=== PATIENT | female | born 1965 | race African-American/Black ===

== ENCOUNTER 2016-05-20 12:24 | Inpatient (IN) | payer MEDICAID, OTHER ==
[~2016-05-20] VITALS: Ht 157.5 cm; Wt 107.4 kg
[2016-05-20 13:24] LABS: Basophils # (auto) 0 uL; Basophils % (auto) 0.4 % (0.0-2.0); Eosinophils # (auto) 0.4 uL; Eosinophils % (auto) 7.6 % (0.0-7.0); Hematocrit 37.7 % (36.0-46.0); Hemoglobin 12.2 g/dL (12.2-16.2); Lymphocytes # (auto) 2.3 uL; Lymphocytes % (auto) 41.5 % (10.0-50.0); Mean Corpuscular Hemoglobin 29.7 pg (28.0-32.0); Mean Corpuscular Hgb Conc. 32.4 g/dL (32.0-36.0); Mean Corpuscular Volume 91.7 fL (80.0-100.0); Mean Platelet Volume 8.5 fL (7.4-10.4); Monocytes # (auto) 0.3 uL; Monocytes % (auto) 4.6 % (0.0-12.0); Neutrophils # (auto) 2.6 uL; Neutrophils % (auto) 45.9 % (37.0-80.0); Platelet Count (auto) 356 10^3/uL (140-450); Red Cell Distribution Width 16.2 % (11.6-16.0); White Blood Cell 5.6 10^3/uL (4.4-10.8)
[2016-05-20 21:05] LABS: INR 1.04 (0.9-1.15); Partial Thromboplastin Time 24.9 sec (22.64-33.71); Prothrombin Time 10.7 sec (9.37-12.3)
[2016-05-20 21:14] LABS: Albumin 3.1 g/dL (3.4-5.0); BUN/Creatinine Ratio 16.7; Bilirubin, Total 0.2 mg/dL (0.2-1.0); Calcium 8.9 mg/dL (8.5-10.1); Potassium 3.1 mmol/L (3.5-5.1); Total Protein 6.8 g/dL (6.4-8.2)
[2016-05-20] MEDS ORDERED: POTASSIUM CHL 20 Meq TABLET PO ONE (22:45)
[2016-05-20] MEDS ORDERED: HYDROcodone-ACET 5/325MG TAB PO PRN (23:00)
[2016-05-20 23:12] LABS: Urine Bilirubin Negative (Negative); Urine Blood Negative /uL (Negative); Urine Color Yellow (Yellow); Urine Glucose Normal (Normal); Urine Hyaline Cast FEW /lpf (0 - 2); Urine Ketone Negative (Negative); Urine Mucus FEW (None Seen); Urine Nitrite Negative (Negative); Urine RBC 1 /hpf (0 - 4); Urine Squamous Epithelial Cell MOD /hpf (<5); Urine Urobilinogen Normal (Negative)
[2016-05-20] MEDS: SODIUM CHLORIDE 0.9% 1,000 ML IV SCH (23:12)
[2016-05-20 23:37] LABS: Temperature: 23.5 C (20.0-25.0)
[2016-05-20 23:58] VITALS: BP 127/80
[2016-05-21 00:18] VITALS: BP 127/80
[2016-05-21] MEDS ORDERED: ASPI-231 PO (00:24)
[2016-05-21] MEDS ORDERED: HYDR25TA4 PO (00:25)
[2016-05-21] MEDS ORDERED: MET50T PO (00:25)
[2016-05-21] MEDS ORDERED: GABA300C8 PO (00:26)
[2016-05-21 05:30] VITALS: BP 141/60
[2016-05-21] MEDS: GABAPENTIN 100 MG CAP PO SCH ×2 (05:52→13:51)
[2016-05-21] MEDS: METHOCARBAMOL 500 MG TAB PO SCH ×2 (05:52→13:51)
[2016-05-21 06:51] LABS: Basophils # (auto) 0 uL; Basophils % (auto) 0.9 % (0.0-2.0); Eosinophils # (auto) 0.4 uL; Eosinophils % (auto) 7.3 % (0.0-7.0); Hematocrit 34.7 % (36.0-46.0); Lymphocytes # (auto) 2.5 uL; Lymphocytes % (auto) 46.7 % (10.0-50.0); Mean Corpuscular Hemoglobin 29.4 pg (28.0-32.0); Mean Corpuscular Hgb Conc. 31.7 g/dL (32.0-36.0); Mean Corpuscular Volume 92.8 fL (80.0-100.0); Mean Platelet Volume 8.4 fL (7.4-10.4); Monocytes # (auto) 0.4 uL; Monocytes % (auto) 7.1 % (0.0-12.0); Platelet Count (auto) 298 10^3/uL (140-450); Red Cell Distribution Width 15.8 % (11.6-16.0); White Blood Cell 5.4 10^3/uL (4.4-10.8)
[2016-05-21 07:20] LABS: Albumin 2.9 g/dL (3.4-5.0); BUN/Creatinine Ratio 15.6; Bilirubin, Total 0.2 mg/dL (0.2-1.0); Calcium 8.6 mg/dL (8.5-10.1); Potassium 3.4 mmol/L (3.5-5.1); Total Protein 6.3 g/dL (6.4-8.2)
[2016-05-21 09:38] VITALS: BP 126/76
[2016-05-21] MEDS ORDERED: ASPirin 81 mg TAB PO SCH (10:00)
[2016-05-21] MEDS ORDERED: LOSARTAN POTASSIUM 50 MG TAB PO SCH (10:00)
[2016-05-21] MEDS ORDERED: METOPROLOL TARTRATE 50 MG TAB PO SCH (10:00)
[2016-05-21] MEDS ORDERED: ENOXAPARIN SOD 40 MG/0.4 ML SYRINGE SC SCH (10:00)
[2016-05-21] MEDS ORDERED: HCTZ 25 MG TAB PO SCH (10:00)
[2016-05-21] MEDS ORDERED: NIFEdipine ER 30 MG TAB PO SCH (10:00)
[2016-05-21] MEDS ORDERED: PANTOPRAZOLE SODIUM 40 MG/10 ML VIAL IV SCH (10:00)
[2016-05-21] MEDS: SODIUM CHLORIDE 0.9% 1,000 ML IV SCH (12:17)
[2016-05-21 13:00] VITALS: BP 110/75
[2016-05-21 17:07] VITALS: BP 112/77
[2016-05-21 18:22] VITALS: BP 112/77
== END 2016-05-21 19:47 | disposition home or self-care (01) | DRG 47 ==
LOC: ER 12:39 → CENTRAL 12:40
PROVIDERS: ADMIT Family Medicine; ATTEND Internal Medicine
DX: G45.9 Transient cerebral ischemic attack, unspecified (principal); G93.89 Other specified disorders of brain; E87.6 Hypokalemia; E78.5 Hyperlipidemia, unspecified; I10 Essential (primary) hypertension; F41.9 Anxiety disorder, unspecified; E66.9 Obesity, unspecified; Z68.41 Body mass index [BMI] 40.0-44.9, adult; I69.354 Hemiplegia and hemiparesis following cerebral infarction affecting left non-dominant side; Z82.49 Family history of ischemic heart disease and other diseases of the circulatory system
CPT/HCPCS: 36415; 70450; 71010; 80053; 80061; 81001; 81025; 82607; 82746; 82962; 83735; 84443; 84484; 85025; 85610; 85730; 93005; 93306; 93886; 94761; C9113

== ENCOUNTER 2017-04-05 10:30 | Emergency (ER) | payer OTHER ==
[~2017-04-05] VITALS: Ht 157.5 cm; Wt 95.3 kg
[~2017-04-05 10:30] MED LIST: ASPI-231 PO; GABA-497 PO; HYDR25TA4 PO; MET50T PO
[2017-04-05 11:25] VITALS: BP 125/80
== END 2017-04-05 11:54 | disposition home or self-care (01) ==
LOC: ER 10:30
DX: J01.10 Acute frontal sinusitis, unspecified (principal); E78.5 Hyperlipidemia, unspecified; I10 Essential (primary) hypertension; Z86.73 Personal history of transient ischemic attack (TIA), and cerebral infarction without residual deficits
CPT/HCPCS: 70450

== ENCOUNTER 2021-01-23 09:44 | Emergency (ER) | payer MEDICAID, OTHER ==
[~2021-01-23] VITALS: Ht 160 cm; Wt 113.4 kg
[~2021-01-23 09:44] MED LIST changes: -GABA-497 PO; +GABA300C10 PO
[2021-01-23 10:32] LABS: INR 1.03 (0.9-1.15); Partial Thromboplastin Time 24.6 sec (23.6-33.0)
[2021-01-23 10:39] LABS: Basophils # (auto) 0.1 10 ^3/uL (0-0.2); Basophils % (auto) 1.2 % (0.0-2.0); Eosinophils # (auto) 0.1 10 ^3/uL (0-0.8); Eosinophils % (auto) 2.2 % (0.0-7.0); Hematocrit 42.3 % (36.0-46.0); Hemoglobin 13.7 g/dL (12.2-16.2); Lymphocytes # (auto) 2.5 10 ^3/uL (0.4-5.4); Mean Corpuscular Hemoglobin 31.3 pg (28.0-32.0); Mean Corpuscular Hgb Conc. 32.3 g/dL (32.0-36.0); Mean Corpuscular Volume 96.8 fL (80.0-100.0); Monocytes # (auto) 0.4 10 ^3/uL (0-1.3); Monocytes % (auto) 6.9 % (0.0-12.0); Neutrophils # (auto) 2.7 10 ^3/uL (1.6-8.6); Neutrophils % (auto) 46.7 % (37.0-80.0); Nucleated Red Blood Cells % 0.1 %; Red Blood Cells 4.37 10^6/uL (4.0-5.20); Red Cell Distribution Width 15.5 % (11.8-14.3); White Blood Cell 5.8 10^3/uL (4.4-10.8)
[2021-01-23 10:56] LABS: Albumin 3.2 g/dL (3.4-5.0); Calcium 9.5 mg/dL (8.5-10.1); Potassium 3.5 mmol/L (3.5-5.1)
[2021-01-23 11:00] LABS: BUN/Creatinine Ratio 20.5; Bilirubin, Total 0.3 mg/dL (0.2-1.0); Total Protein 7.5 g/dL (6.4-8.2)
[2021-01-23 18:35] VITALS: BP 144/89
== END 2021-01-23 18:40 | disposition home or self-care (01) ==
LOC: ER 09:44
DX: R04.0 Epistaxis (principal); I10 Essential (primary) hypertension; E78.5 Hyperlipidemia, unspecified; Z86.73 Personal history of transient ischemic attack (TIA), and cerebral infarction without residual deficits; Z79.82 Long term (current) use of aspirin; Z79.899 Other long term (current) drug therapy
CPT/HCPCS: 30901; 36415; 80053; 85025; 85610; 85730

== ENCOUNTER 2021-08-17 10:46 | Emergency (ER) | payer SELFPAY ==
[~2021-08-17] VITALS: Ht 160 cm; Wt 95.3 kg
[~2021-08-17 10:46] MED LIST changes: -ASPI-231 PO; +ASPI1TAB20 PO
[2021-08-17 11:21] VITALS: BP 156/78
[2021-08-17] MEDS ORDERED: IBUP800T27 PO (12:07)
== END 2021-08-17 12:22 | disposition home or self-care (01) ==
LOC: ER 10:46
DX: S83.92XA Sprain of unspecified site of left knee, initial encounter (principal); I10 Essential (primary) hypertension; E78.5 Hyperlipidemia, unspecified; X58.XXXA Exposure to other specified factors, initial encounter; Y93.89 Activity, other specified; Y92.89 Other specified places as the place of occurrence of the external cause; Y99.8 Other external cause status
CPT/HCPCS: 29505; 73562

== ENCOUNTER 2021-09-26 13:37 | Inpatient (IN) | payer SELFPAY ==
[~2021-09-26] VITALS: Ht 160 cm; Wt 119.8 kg
[~2021-09-26 13:37] MED LIST changes: +IBUP800T27 PO
[2021-09-26 15:02] LABS: Basophils # (auto) 0.1 10 ^3/uL (0-0.2); Basophils % (auto) 1.1 % (0.0-2.0); Eosinophils # (auto) 0.2 10 ^3/uL (0-0.8); Eosinophils % (auto) 1.9 % (0.0-7.0); Hematocrit 39.2 % (36.0-46.0); Hemoglobin 13.3 g/dL (12.2-16.2); Lymphocytes # (auto) 2.6 10 ^3/uL (0.4-5.4); Mean Corpuscular Hemoglobin 31.5 pg (28.0-32.0); Mean Corpuscular Volume 92.8 fL (80.0-100.0); Monocytes # (auto) 0.8 10 ^3/uL (0-1.3); Monocytes % (auto) 8.7 % (0.0-12.0); Neutrophils # (auto) 5.4 10 ^3/uL (1.6-8.6); Neutrophils % (auto) 59.3 % (37.0-80.0); Nucleated Red Blood Cells % 0.1 %; Red Blood Cells 4.23 10^6/uL (4.0-5.20); Red Cell Distribution Width 15.3 % (11.8-14.3); White Blood Cell 9.1 10^3/uL (4.4-10.8)
[2021-09-26 15:18] LABS: Potassium 3.1 mmol/L (3.5-5.1)
[2021-09-26 15:26] LABS: Albumin 2.7 g/dL (3.4-5.0); Amylase 22 U/L (25-115); BUN/Creatinine Ratio 17.3; Bilirubin, Total 0.4 mg/dL (0.2-1.0); Calcium 9.7 mg/dL (8.5-10.1); Lipase 137 U/L (73-393); Total Protein 7.8 g/dL (6.4-8.2)
[2021-09-26] MEDS ORDERED: SODIUM CHLORIDE 0.9% 500 ML IVB ONE (16:15)
[2021-09-26] MEDS ORDERED: ONDANSETRON HCL 4 MG/2 ML VIAL IV ONE (16:15)
[2021-09-26] MEDS ORDERED: PANTOPRAZOLE 40 MG/10 ML VIAL INJ IV ONE (16:15)
[2021-09-26] MEDS ORDERED: MORPHINE SULFATE 4 MG/ML SYR/VIAL IV ONE (16:15)
[2021-09-26] MEDS ORDERED: POTASSIUM CHL 20MEQ/100ML 100 ML IV ONE (17:00)
[2021-09-27] VITALS (7 sets, daily range): BP systolic 106–134; BP diastolic 59–87
[2021-09-27] MEDS ORDERED: NITROGLYCERIN 0.4 MG SL TAB SL PRN
[2021-09-27] MEDS ORDERED: ACETAMINOPHEN 325 MG TAB PO PRN
[2021-09-27] MEDS ORDERED: DOCUSATE SOD 100 MG CAP PO PRN
[2021-09-27] MEDS ORDERED: MORPHINE SULFATE INJ 2 MG/ml SYRG IV PRN
[2021-09-27] MEDS: SODIUM CHLORIDE 0.9% 1,000 ML IV SCH ×4 (00:07→19:40)
[2021-09-27] MEDS: POTASSIUM CHL 20MEQ/100ML 100 ML IV SCH ×2 (02:46→04:56)
[2021-09-27 03:46] LABS: Urine Bacteria MOD /hpf (None Seen); Urine Blood TRACE /uL (Negative); Urine Hyaline Cast MOD /lpf (0 - 2); Urine Mucus FEW (None Seen); Urine Specific Gravity 1.027 (1.001-1.035); Urine WBC 70 /hpf (0 - 5)
[2021-09-27] MEDS: ONDANSETRON HCL 4 MG/2 ML VIAL IV PRN (04:22)
[2021-09-27] MEDS: MORPHINE SULFATE INJ 2 MG/ml SYRG IV PRN ×2 (04:22→20:18)
[2021-09-27] MEDS ORDERED: BENA10TA15 PO (06:06)
[2021-09-27 07:35] LABS: Basophils # (auto) 0.1 10 ^3/uL (0-0.2); Basophils % (auto) 0.8 % (0.0-2.0); Eosinophils # (auto) 0.2 10 ^3/uL (0-0.8); Eosinophils % (auto) 2.4 % (0.0-7.0); Hematocrit 35.6 % (36.0-46.0); Mean Corpuscular Hemoglobin 31.8 pg (28.0-32.0); Mean Corpuscular Hgb Conc. 33.8 g/dL (32.0-36.0); Monocytes # (auto) 0.8 10 ^3/uL (0-1.3); Monocytes % (auto) 9.6 % (0.0-12.0); Neutrophils # (auto) 4.8 10 ^3/uL (1.6-8.6); Neutrophils % (auto) 61.2 % (37.0-80.0); Nucleated Red Blood Cells % 0.1 %; Red Blood Cells 3.78 10^6/uL (4.0-5.20); Red Cell Distribution Width 15.2 % (11.8-14.3); White Blood Cell 7.8 10^3/uL (4.4-10.8)
[2021-09-27 07:55] LABS: Albumin 2.4 g/dL (3.4-5.0); Potassium 3.6 mmol/L (3.5-5.1)
[2021-09-27 08:01] LABS: Bilirubin, Total 0.3 mg/dL (0.2-1.0); Total Protein 6.9 g/dL (6.4-8.2)
[2021-09-27] MEDS: METOPROLOL TARTRATE 25 MG TAB PO SCH ×2 (10:00→21:39)
[2021-09-27] MEDS: PANTOPRAZOLE 40 MG/10 ML VIAL INJ IV SCH (10:47)
[2021-09-27] MEDS ORDERED: cefTRIAXone 1GM/50ML D5W 50 ML IV ONE (13:00)
[2021-09-27] MEDS: metroNIDAZOLE 500MG/100ML 100 ML IV SCH ×2 (15:16→21:39)
[2021-09-27 19:56] LABS: INR 1.16 (0.9-1.15); Partial Thromboplastin Time 29.1 sec (23.6-33.0)
[2021-09-28] MEDS: SODIUM CHLORIDE 0.9% 1,000 ML IV SCH ×4 (02:20→22:43)
[2021-09-28 05:00] VITALS: BP 122/80
[2021-09-28] MEDS: metroNIDAZOLE 500MG/100ML 100 ML IV SCH ×3 (05:18→22:07)
[2021-09-28 08:00] VITALS: BP 123/84
[2021-09-28 09:00] VITALS: BP 123/84
[2021-09-28] MEDS: PANTOPRAZOLE 40 MG/10 ML VIAL INJ IV SCH (09:58)
[2021-09-28] MEDS: cefTRIAXone 1GM/50ML D5W 50 ML IV SCH (09:58)
[2021-09-28] MEDS: METOPROLOL TARTRATE 25 MG TAB PO SCH ×2 (10:00→22:08)
[2021-09-28] MEDS: ONDANSETRON HCL 4 MG/2 ML VIAL IV PRN (10:40)
[2021-09-28] MEDS: MORPHINE SULFATE INJ 2 MG/ml SYRG IV PRN ×2 (12:48→20:54)
[2021-09-28 13:00] VITALS: BP 147/78
[2021-09-28] MEDS: hydrALAZINE HCL 25 MG TAB PO PRN (16:48)
[2021-09-28 17:01] VITALS: BP 153/99
[2021-09-28 22:00] VITALS: BP 137/89
[2021-09-29] MEDS: HYDROcodone-ACET 5/325MG TAB PO PRN ×2 (03:55→21:52)
[2021-09-29 05:00] VITALS: BP 134/88
[2021-09-29] MEDS: SODIUM CHLORIDE 0.9% 1,000 ML IV SCH ×3 (05:28→18:20)
[2021-09-29] MEDS: metroNIDAZOLE 500MG/100ML 100 ML IV SCH ×3 (05:28→21:43)
[2021-09-29 08:30] VITALS: BP 181/127
[2021-09-29] MEDS: PANTOPRAZOLE 40 MG/10 ML VIAL INJ IV SCH (10:05)
[2021-09-29] MEDS: cefTRIAXone 1GM/50ML D5W 50 ML IV SCH (10:05)
[2021-09-29] MEDS: METOPROLOL TARTRATE 25 MG TAB PO SCH ×2 (10:06→21:44)
[2021-09-29 12:30] VITALS: BP 172/108
[2021-09-29] MEDS: hydrALAZINE HCL 25 MG TAB PO PRN ×2 (12:45→22:53)
[2021-09-29 16:30] VITALS: BP 189/119
[2021-09-30] MEDS: SODIUM CHLORIDE 0.9% 1,000 ML IV SCH (01:00)
[2021-09-30] MEDS: HYDROcodone-ACET 5/325MG TAB PO PRN ×2 (03:25→08:31)
[2021-09-30] MEDS: MORPHINE SULFATE INJ 2 MG/ml SYRG IV PRN ×2 (04:27→13:56)
[2021-09-30] MEDS: hydrALAZINE HCL 25 MG TAB PO PRN ×2 (04:28→08:31)
[2021-09-30 05:00] VITALS: BP 170/107
[2021-09-30] MEDS: metroNIDAZOLE 500MG/100ML 100 ML IV SCH ×3 (05:08→22:49)
[2021-09-30] MEDS: cefTRIAXone 1GM/50ML D5W 50 ML IV SCH (08:30)
[2021-09-30] MEDS: METOPROLOL TARTRATE 25 MG TAB PO SCH ×2 (08:32→22:50)
[2021-09-30 08:58] VITALS: BP 189/110
[2021-09-30] MEDS: PANTOPRAZOLE 40 MG/10 ML VIAL INJ IV SCH (10:00)
[2021-09-30 13:08] VITALS: BP 169/105
[2021-09-30] MEDS: ONDANSETRON HCL 4 MG/2 ML VIAL IV PRN (13:56)
[2021-09-30] MEDS: BENAZEPRIL HCL 10 MG TAB PO SCH (14:26)
[2021-09-30] MEDS: HCTZ 25 MG TAB PO SCH (14:26)
[2021-09-30] MEDS ORDERED: hydrALAZINE HCL 20 MG/ML VL IV ONE (15:30)
[2021-09-30] MEDS ORDERED: SUCCINYLCHOLINE CHLORIDE 20 MG/ML 10ML VIAL IV ONE (16:34)
[2021-09-30] MEDS ORDERED: fentaNYL CITRATE 100 MCG/2 ML VL ONE (16:42)
[2021-09-30] MEDS ORDERED: MIDAZOLAM HCL 2MG/2ML 2ml VIAL (1mg/ml) ONE (16:43)
[2021-09-30] MEDS ORDERED: LABETALOL HCL 5 MG/ML ML 20ML VIAL IV ONE (16:46)
[2021-09-30] MEDS ORDERED: NEOSTIGMINE 1 MG/ML INJ (10mg/10ML VIAL) ONE ×2 (16:46→18:52)
[2021-09-30] MEDS ORDERED: LIDOCAINE 2% (LOCAL ANESTH.) PF 5ml SDV ONE (16:46)
[2021-09-30] MEDS ORDERED: GLYCOPYRROLATE 0.2 MG/ML 1ML VIAL ONE ×2 (16:46→18:52)
[2021-09-30] MEDS ORDERED: ONDANSETRON HCL 4 MG/2 ML VIAL ONE ×2 (16:46→18:52)
[2021-09-30] MEDS ORDERED: METOCLOPRAMIDE HCL 5MG/ml INJ 2ml VIAL ONE ×2 (16:46→18:52)
[2021-09-30] MEDS ORDERED: BUPIVACAINE 0.25% INJ 50ML VIAL ONE (16:53)
[2021-09-30 17:05] VITALS: BP 178/105
[2021-09-30] MEDS ORDERED: DexAMETHasone SOD PHOS 10MG/1ML VIAL INJ ONE (18:52)
[2021-09-30] MEDS ORDERED: PROPOFOL 10 MG/ML 20 ML IV ONE (18:52)
[2021-09-30] MEDS ORDERED: fentaNYL CITRATE 100 MCG/2 ML VL IV PRN (20:45)
[2021-09-30] MEDS ORDERED: METOCLOPRAMIDE HCL 5MG/ml INJ 2ml VIAL IV PRN (20:45)
[2021-09-30] MEDS ORDERED: LABETALOL HCL 5 MG/ML 4ML SYRINGE IV PRN (20:45)
[2021-09-30] MEDS ORDERED: ONDANSETRON HCL 4 MG/2 ML VIAL IV PRN (20:45)
[2021-09-30] MEDS ORDERED: hydrALAZINE HCL 20 MG/ML VL IV PRN (20:45)
[2021-09-30] MEDS: HYDROmorphone HCL 2 MG/ML VL/or syr IV PRN ×2 (20:50→21:06)
[2021-10-01] MEDS: MORPHINE SULFATE INJ 2 MG/ml SYRG IV PRN ×3 (00:18→21:46)
[2021-10-01] MEDS: ONDANSETRON HCL 4 MG/2 ML VIAL IV PRN ×2 (00:23→09:16)
[2021-10-01] MEDS: metroNIDAZOLE 500MG/100ML 100 ML IV SCH ×3 (05:47→19:05)
[2021-10-01 06:32] LABS: Basophils # (auto) 0 10 ^3/uL (0-0.2); Basophils % (auto) 0.4 % (0.0-2.0); Eosinophils # (auto) 0 10 ^3/uL (0-0.8); Hematocrit 37.2 % (36.0-46.0); Hemoglobin 12.9 g/dL (12.2-16.2); Lymphocytes % (auto) 12.4 % (10.0-50.0); Mean Corpuscular Hgb Conc. 34.6 g/dL (32.0-36.0); Mean Corpuscular Volume 92.6 fL (80.0-100.0); Monocytes # (auto) 0.4 10 ^3/uL (0-1.3); Monocytes % (auto) 5.5 % (0.0-12.0); Neutrophils # (auto) 6.4 10 ^3/uL (1.6-8.6); Neutrophils % (auto) 81.7 % (37.0-80.0); Nucleated Red Blood Cells % 0.2 %; Red Blood Cells 4.02 10^6/uL (4.0-5.20); White Blood Cell 7.9 10^3/uL (4.4-10.8)
[2021-10-01 06:41] LABS: Potassium 3.4 mmol/L (3.5-5.1)
[2021-10-01 06:48] LABS: Albumin 2.5 g/dL (3.4-5.0); BUN/Creatinine Ratio 8.1; Bilirubin, Total 0.3 mg/dL (0.2-1.0); Calcium 8.9 mg/dL (8.5-10.1); Total Protein 7.2 g/dL (6.4-8.2)
[2021-10-01 07:12] LABS: Red Cell Distribution Width 15.3 % (11.8-14.3)
[2021-10-01 08:45] VITALS: BP 169/106
[2021-10-01] MEDS: cefTRIAXone 1GM/50ML D5W 50 ML IV SCH (09:15)
[2021-10-01] MEDS: PANTOPRAZOLE 40 MG/10 ML VIAL INJ IV SCH (09:17)
[2021-10-01] MEDS: SODIUM CHLORIDE 0.9% 1,000 ML IV SCH ×2 (10:20→18:53)
[2021-10-01] MEDS: BENAZEPRIL HCL 10 MG TAB PO SCH (10:32)
[2021-10-01] MEDS: METOPROLOL TARTRATE 25 MG TAB PO SCH ×2 (10:32→21:36)
[2021-10-01] MEDS: HCTZ 25 MG TAB PO SCH (10:33)
[2021-10-01 12:45] VITALS: BP 146/88
[2021-10-01 14:53] LABS: Hepatitis B Core IgM Negative
[2021-10-01 14:54] LABS: Hepatitis B Surface Antibody Negative (Negative); Hepatitis C Antibody Negative (Negative)
[2021-10-01 17:00] VITALS: BP 160/103
[2021-10-01 21:57] VITALS: BP 148/105
[2021-10-02] VITALS (8 sets, daily range): BP systolic 125–183; BP diastolic 82–114
[2021-10-02] MEDS: SODIUM CHLORIDE 0.9% 1,000 ML IV SCH (03:38)
[2021-10-02] MEDS: hydrALAZINE HCL 25 MG TAB PO PRN ×3 (04:06→18:59)
[2021-10-02] MEDS: metroNIDAZOLE 500MG/100ML 100 ML IV SCH ×3 (06:01→21:41)
[2021-10-02] MEDS: cefTRIAXone 1GM/50ML D5W 50 ML IV SCH (09:20)
[2021-10-02] MEDS: BENAZEPRIL HCL 10 MG TAB PO SCH (09:21)
[2021-10-02] MEDS: METOPROLOL TARTRATE 25 MG TAB PO SCH ×2 (09:22→21:47)
[2021-10-02] MEDS: HCTZ 25 MG TAB PO SCH (09:22)
[2021-10-02] MEDS: PANTOPRAZOLE 40 MG/10 ML VIAL INJ IV SCH (09:22)
[2021-10-02 17:05] LABS: Basophils # (auto) 0.1 10 ^3/uL (0-0.2); Basophils % (auto) 1.3 % (0.0-2.0); Eosinophils # (auto) 0.1 10 ^3/uL (0-0.8); Eosinophils % (auto) 1.7 % (0.0-7.0); Hematocrit 38.3 % (36.0-46.0); Hemoglobin 12.7 g/dL (12.2-16.2); Lymphocytes # (auto) 1.1 10 ^3/uL (0.4-5.4); Mean Corpuscular Hemoglobin 30.9 pg (28.0-32.0); Mean Corpuscular Hgb Conc. 33.2 g/dL (32.0-36.0); Mean Corpuscular Volume 92.9 fL (80.0-100.0); Monocytes # (auto) 0.5 10 ^3/uL (0-1.3); Monocytes % (auto) 8.9 % (0.0-12.0); Neutrophils # (auto) 4.1 10 ^3/uL (1.6-8.6); Neutrophils % (auto) 69.1 % (37.0-80.0); Nucleated Red Blood Cells % 0.1 %; Red Blood Cells 4.13 10^6/uL (4.0-5.20); Red Cell Distribution Width 15.3 % (11.8-14.3); White Blood Cell 5.9 10^3/uL (4.4-10.8)
[2021-10-02 17:23] LABS: Albumin 2.4 g/dL (3.4-5.0); Calcium 8.9 mg/dL (8.5-10.1); Potassium 3.2 mmol/L (3.5-5.1)
[2021-10-02 17:25] LABS: BUN/Creatinine Ratio 10.8
[2021-10-02 17:28] LABS: Bilirubin, Total 0.2 mg/dL (0.2-1.0); Total Protein 6.6 g/dL (6.4-8.2)
[2021-10-03 05:00] VITALS: BP 125/81
[2021-10-03] MEDS: metroNIDAZOLE 500MG/100ML 100 ML IV SCH ×2 (06:17→14:00)
[2021-10-03] MEDS: cefTRIAXone 1GM/50ML D5W 50 ML IV SCH (08:58)
[2021-10-03] MEDS: METOPROLOL TARTRATE 25 MG TAB PO SCH (08:59)
[2021-10-03] MEDS: HCTZ 25 MG TAB PO SCH (08:59)
[2021-10-03 09:00] VITALS: BP 144/95
[2021-10-03] MEDS: BENAZEPRIL HCL 10 MG TAB PO SCH (09:00)
[2021-10-03] MEDS: PANTOPRAZOLE 40 MG/10 ML VIAL INJ IV SCH (09:01)
[2021-10-03] MEDS ORDERED: HYDR-4902 PO (11:23)
[2021-10-03] MEDS ORDERED: METR500T PO (11:23)
[2021-10-03] MEDS ORDERED: BENA10TA14 PO (11:23)
[2021-10-03] MEDS ORDERED: LEVO500T31 PO (11:23)
[2021-10-03] MEDS ORDERED: HYDR25TA5 PO (11:23)
[2021-10-03] MEDS ORDERED: METO25TA5 PO (11:23)
[2021-10-03] MEDS ORDERED: LOPERAMIDE HCL 2 MG CAP/TAB PO ONE (11:30)
[2021-10-03 12:58] VITALS: BP 147/102
[2021-10-03] MEDS: hydrALAZINE HCL 25 MG TAB PO PRN (16:17)
[2021-10-03] MEDS ORDERED: cloNIDine 0.2 mg/24hr 7DAY PATCH TD ONE (16:30)
[2021-10-03] MEDS ORDERED: hydrALAZINE HCL 20 MG/ML VL IV ONE (16:30)
[2021-10-03 16:41] VITALS: BP 179/120
[2021-10-03] MEDS ORDERED: cloNIDine HCL 0.1 MG TAB PO ONE (16:45)
[2021-10-03 17:21] VITALS: BP 155/95
== END 2021-10-03 18:50 | disposition home or self-care (01) | DRG 853 ==
LOC: ER 13:37 → EAST 23:53
PROVIDERS: ADMIT Nurse Practitioner Family; ATTEND Family Medicine
PROC: 0DNW4ZZ Release Peritoneum, Percutaneous Endoscopic Approach (ICD-10-PCS; 2021-09-30)
PROC: 0FT44ZZ Resection of Gallbladder, Percutaneous Endoscopic Approach (ICD-10-PCS; principal; 2021-09-30 16:54)
DX: A41.9 Sepsis, unspecified organism (principal); K65.1 Peritoneal abscess; K80.00 Calculus of gallbladder with acute cholecystitis without obstruction; N39.0 Urinary tract infection, site not specified; E44.0 Moderate protein-calorie malnutrition; Z68.43 Body mass index [BMI] 50.0-59.9, adult; E88.09 Other disorders of plasma-protein metabolism, not elsewhere classified; E87.6 Hypokalemia; Z20.822 Contact with and (suspected) exposure to COVID-19; E78.00 Pure hypercholesterolemia, unspecified; E78.5 Hyperlipidemia, unspecified; K66.0 Peritoneal adhesions (postprocedural) (postinfection); E66.01 Morbid (severe) obesity due to excess calories; K59.00 Constipation, unspecified; Z80.3 Family history of malignant neoplasm of breast; Z82.49 Family history of ischemic heart disease and other diseases of the circulatory system; Z86.73 Personal history of transient ischemic attack (TIA), and cerebral infarction without residual deficits
CPT/HCPCS: 36415; 71045; 76705; 78226; 80053; 81001; 82150; 83690; 85025; 85610; 85730; 86703; 86704; 86705; 86706; 86803; 86850; 86900; 86901; 87086; 87340; 93005; 93306; 96361; 96374; 96375; 97163; C9113; G0378; J0330; J0696; J1100; J2001; J2250; J2405; J2704; J3480; J3490

== ENCOUNTER 2023-04-28 09:17 | Emergency (ER) | payer MEDICAID, OTHER ==
[~2023-04-28] VITALS: Ht 160 cm; Wt 104.5 kg
[~2023-04-28 09:17] MED LIST changes: +BENA-19 PO; +BENA10TA16 PO; -GABA300C10 PO; +HYDR-4902 PO; +HYDR25TA5 PO; +IBUP-1456 PO; -IBUP800T27 PO; +LEVO500T31 PO; -MET50T PO; +METO25TA5 PO; +METR500T PO
[2023-04-28 10:09] VITALS: O2SAT 95
[2023-04-28] MEDS ORDERED: PRED20TA2 PO (11:18)
[2023-04-28] MEDS ORDERED: CYCL-839 PO (11:18)
[2023-04-28] MEDS ORDERED: NABU-72 PO (11:18)
[2023-04-28 11:20] VITALS: BP 154/89; PULSE 88; RESP 18; TEMP 97.8; O2SAT 95
== END 2023-04-28 11:22 | disposition home or self-care (01) ==
LOC: ER 09:17
DX: S70.01XA Contusion of right hip, initial encounter (principal); I10 Essential (primary) hypertension; E78.5 Hyperlipidemia, unspecified; Z86.73 Personal history of transient ischemic attack (TIA), and cerebral infarction without residual deficits; Z79.1 Long term (current) use of non-steroidal anti-inflammatories (NSAID); Z79.2 Long term (current) use of antibiotics; Z79.899 Other long term (current) drug therapy; W01.198A Fall on same level from slipping, tripping and stumbling with subsequent striking against other object, initial encounter; Y93.89 Activity, other specified; Y92.89 Other specified places as the place of occurrence of the external cause; Y99.8 Other external cause status
CPT/HCPCS: 73502